=== PATIENT | male | born 1970 | race Caucasian/White ===

== ENCOUNTER 2016-10-11 10:32 | Emergency (ER) | payer BC ==
[~2016-10-11] VITALS: Ht 180.3 cm; Wt 112.0 kg
[2016-10-11 10:45] VITALS: Ht 180.3 cm; Wt 112.0 kg
[2016-10-11] MEDS ORDERED: LIDOCAINE 1% (MDV) 20 ML INJ INJ STA (12:40)
[2016-10-11] MEDS ORDERED: HYDR-902 PO (13:04)
[2016-10-11] MEDS ORDERED: IBUP800T25 PO (13:04)
[2016-10-11] MEDS ORDERED: SULF1TAB31 PO (13:04)
[2016-10-11] MEDS ORDERED: CEPH-443 PO (13:04)
--- NOTE | 2016-10-11 13:07 | ERD ---
ER Documentation Chief Complaint Date/Time DATE: 10/11/16 TIME: 13:05 Chief Complaint LT INNER THIGH ABCESS HPI Patient is a 45-year-old male who presents with an area of redness and swelling to his left upper inner thigh that he has had for 3 days. He has had this in the past for and has had good response with incision and drainage and antibiotic outpatient therapy. Denies fever. Pain is 8 out of 10 throbbing and worse when moved or touched. He is ambulatory. No fever. No nausea vomiting diarrhea. ROS All systems reviewed and are negative except as per history of present illness. Medications Home Meds Active Scripts Hydrocodone/Acetaminophen (Butler 10-325 Tablet) 1 Each Tablet, 1 TAB PO Q6H Y for PAIN, #20 TAB Prov:DANNIE PRINCE PA-C 10/11/16 Cephalexin* (Keflex*) 500 Mg Capsule, 500 MG PO QID for 7 Days, CAP Prov:DANNIE PRINCE PA-C 10/11/16 Ibuprofen* (Motrin*) 800 Mg Tab, 800 MG PO Q6H Y for PAIN AND OR ELEVATED TEMP, #30 TAB Prov:DANNIE PRINCE PA-C 10/11/16 Sulfamethoxazole/Trimethoprim* (Bactrim Ds* Tablet) 1 Each Tablet, 1 TAB PO BID , #14 TAB Prov:DANNIE PRINCE PA-C 10/11/16 PMhx/Soc History of Surgery: No Anesthesia Reaction: No Hx Neurological Disorder: No Hx Respiratory Disorders: No Hx Cardiac Disorders: No Hx Psychiatric Problems: No Hx Miscellaneous Medical Probl: No Hx Alcohol Use: Yes Hx Substance Use: No Hx Tobacco Use: Yes Smoking Status: Current every day smoker FmHx Family History: No diabetes Physical Exam Vitals Vital Signs Date Time Temp Pulse Resp B/P Pulse Ox O2 Delivery O2 Flow Rate FiO2 10/11/16 10:45 98.1 98 18 156/72 98 Physical Exam Const: [] Head: Atraumatic Eyes: Normal Conjunctiva ENT: Normal External Ears, Nose and Mouth. Neck: Full range of motion..~ No meningismus. Resp: Clear to auscultation bilaterally Cardio: Regular rate and rhythm, no murmurs Abd: Soft, non tender, non distended. Normal bowel sounds Skin: Left upper medial thigh abscess approximately 4 cm in diameter, tender to palpation with fluctuance Results 24 hrs Current Medications Medications (Trade) Dose Ordered Sig/Sue Route PRN Reason Start Time Stop Time Status Last Admin Dose Admin Lidocaine (Xylocaine 1% (Mdv) 20 ml) 20 ml ONCE STAT INJ 10/11/16 12:40 10/11/16 12:41 DC Procedures/MDM 45-year-old male presents for abscess. The wound was prepped with Betadine. 1 % lidocaine was used to anesthetize the site. A small incision using an 11 blade was made and copious amounts of purulent drainage of blood was drained. Patient tolerated the procedure well and there were no complications. Wound was then appropriately dressed and bandaged. Patient was given prescription for anti-inflammatories, Butler, Bactrim, and Keflex. Recommended this patient follow up with her primary care doctor within 48 hours or return to the emergency room for any worsening of symptoms. However this time I do believe there is suitable for outpatient management. I answered all their questions and they agreed with the plan and were discharged home. Departure Diagnosis: Primary Impression: Abscess Condition: Stable Patient Instructions: Abscess, Incision And Drainage Additional Instructions: Call your primary care doctor TOMORROW for an appointment during the next 1-2 days.See the doctor sooner or return here if your condition worsens before your appointment time. DANNIE PRINCE PA-C October 11, 2016 13:07
[2016-10-11 13:20] VITALS: BP 145/76; PULSE 84; RESP 16
== END 2016-10-11 13:20 | disposition home or self-care (01) ==
LOC: FTE 10:32
DX: L02.416 Cutaneous abscess of left lower limb (principal); F17.210 Nicotine dependence, cigarettes, uncomplicated